=== PATIENT | male | born 1935 | race Caucasian/White ===

== ENCOUNTER → 2017-02-01 | Outpatient (CLI) | payer MEDICARE, BC ==
[~2017-02-01] MED LIST: HYDR-2823 PO; HYDR12.56 PO; NEUR600T PO; SYMB6CAP PO; TOPR25TA2 PO
[2017-02-01 09:16] LABS: HEMATOCRIT 44.7 % (39.0-51.0); MEAN CELL VOLUME 90.6 FL (80.0-100.0); MEAN CORPUSCULAR HEMOGLOBIN 30.2 PG (27.0-34.0); MEAN CORPUSCULAR HGB CONC 33.3 % (32.0-36.0); PLATELET COUNT 227 TH/MM3 (150-450); RED BLOOD COUNT 4.94 MIL/MM3 (4.50-5.90); RED CELL DISTRIBUTION WIDTH 13.7 % (11.6-17.2); REVIEW FLAG FINAL
[2017-02-01 09:48] LABS: ALKALINE PHOSPHATASE 92 U/L (45-117); ALT (GPT) 28 U/L (12-78); ANION GAP 9 MEQ/L (5-15); AST (GOT) 13 U/L (15-37); BLOOD UREA NITROGEN 19 MG/DL (7-18); CHLORIDE 105 MEQ/L (98-107); GLOMERULAR FILTRATION RATE 67 ML/MIN (>89); GLUCOSE,FASTING 181 MG/DL (74-99); HDL CHOLESTEROL 50.6 MG/DL (40.0-60.0); LDL CHOLESTEROL 86 MG/DL (0-99); LDL CHOLESTEROL DIRECT 122 MG/DL (0-99); POTASSIUM 4.2 MEQ/L (3.5-5.1); SODIUM (NA) 141 MEQ/L (136-145); TOTAL BILIRUBIN ADULT 0.6 MG/DL (0.2-1.0)
[2017-02-01 12:12] LABS: HEMOGLOBIN A1a 1.2 %; HEMOGLOBIN A1b 2.5 %; HEMOGLOBIN Ao 79.8 %; HEMOGLOBIN LA1C 2.5 %; HEMOGLOBIN P3 4.2 %
== END ==
LOC: PLAB 07:39
PROVIDERS: ATTEND Family Medicine
DX: E11.9 Type 2 diabetes mellitus without complications (principal); E78.2 Mixed hyperlipidemia; I10 Essential (primary) hypertension
CPT/HCPCS: 36415; 80053; 80061; 83036; 83721; 85027

== ENCOUNTER → 2017-05-10 | Outpatient (CLI) | payer MEDICARE, BC ==
[2017-05-10 09:44] LABS: HEMATOCRIT 44.4 % (39.0-51.0); MEAN CELL VOLUME 91.6 FL (80.0-100.0); MEAN CORPUSCULAR HGB CONC 32.8 % (32.0-36.0); PLATELET COUNT 246 TH/MM3 (150-450); RED BLOOD COUNT 4.85 MIL/MM3 (4.50-5.90); RED CELL DISTRIBUTION WIDTH 14.2 % (11.6-17.2); REVIEW FLAG FINAL; WHITE BLOOD COUNT 8.6 TH/MM3 (4.0-11.0)
[2017-05-10 10:02] LABS: ANION GAP 10 MEQ/L (5-15); AST (GOT) 15 U/L (15-37); BICARBONATE 25.5 MEQ/L (21.0-32.0); BLOOD UREA NITROGEN 21 MG/DL (7-18); CHLORIDE 105 MEQ/L (98-107); GLOMERULAR FILTRATION RATE 76 ML/MIN (>89); GLUCOSE,FASTING 198 MG/DL (74-99); POTASSIUM 4.1 MEQ/L (3.5-5.1); SODIUM (NA) 140 MEQ/L (136-145)
[2017-05-10 10:03] LABS: ALT (GPT) 25 U/L (12-78)
[2017-05-10 10:06] LABS: ALKALINE PHOSPHATASE 101 U/L (45-117); LDL CHOLESTEROL DIRECT 117 MG/DL (0-99); TOTAL BILIRUBIN ADULT 0.6 MG/DL (0.2-1.0)
[2017-05-10 10:23] LABS: HDL CHOLESTEROL 47.3 MG/DL (40.0-60.0); LDL CHOLESTEROL 106 MG/DL (0-99)
[2017-05-10 16:01] LABS: HEMOGLOBIN A1a 1.3 %; HEMOGLOBIN A1b 2.4 %; HEMOGLOBIN Ao 80.5 %; HEMOGLOBIN LA1C 2.5 %; HEMOGLOBIN P3 4.2 %
== END ==
LOC: PLAB 07:46
PROVIDERS: ATTEND Family Medicine
DX: E78.5 Hyperlipidemia, unspecified (principal); I10 Essential (primary) hypertension; E11.9 Type 2 diabetes mellitus without complications
CPT/HCPCS: 36415; 80053; 80061; 83036; 83721; 85027

== ENCOUNTER → 2017-08-16 | Outpatient (CLI) | payer MEDICARE, BC ==
[2017-08-16 13:31] LABS: MEAN CELL VOLUME 91.3 FL (80.0-100.0); MEAN CORPUSCULAR HEMOGLOBIN 30.4 PG (27.0-34.0); MEAN CORPUSCULAR HGB CONC 33.3 % (32.0-36.0); PLATELET COUNT 245 TH/MM3 (150-450); RED BLOOD COUNT 4.82 MIL/MM3 (4.50-5.90); RED CELL DISTRIBUTION WIDTH 14.1 % (11.6-17.2); REVIEW FLAG FINAL; WHITE BLOOD COUNT 8.3 TH/MM3 (4.0-11.0)
[2017-08-16 13:34] LABS: ANION GAP 7 MEQ/L (5-15); AST (GOT) 21 U/L (15-37); BICARBONATE 28.2 MEQ/L (21.0-32.0); BLOOD UREA NITROGEN 18 MG/DL (7-18); CHLORIDE 105 MEQ/L (98-107); GLOMERULAR FILTRATION RATE 64 ML/MIN (>89); GLUCOSE,FASTING 179 MG/DL (74-99); POTASSIUM 4.3 MEQ/L (3.5-5.1); SODIUM (NA) 140 MEQ/L (136-145)
[2017-08-16 13:35] LABS: ALT (GPT) 33 U/L (12-78)
[2017-08-16 13:37] LABS: ALKALINE PHOSPHATASE 102 U/L (45-117); HDL CHOLESTEROL 46.5 MG/DL (40.0-60.0); LDL CHOLESTEROL 83 MG/DL (0-99); LDL CHOLESTEROL DIRECT 118 MG/DL (0-99); TOTAL BILIRUBIN ADULT 0.5 MG/DL (0.2-1.0)
[2017-08-16 16:33] LABS: HEMOGLOBIN A1a 1.3 %; HEMOGLOBIN A1b 2.5 %; HEMOGLOBIN Ao 79.6 %; HEMOGLOBIN LA1C 2.5 %; HEMOGLOBIN P3 4.2 %
== END ==
LOC: PLAB 08:19
PROVIDERS: ATTEND Family Medicine
DX: E11.9 Type 2 diabetes mellitus without complications (principal); E78.2 Mixed hyperlipidemia; I10 Essential (primary) hypertension
CPT/HCPCS: 36415; 80053; 80061; 83036; 83721; 85027

== ENCOUNTER → 2017-11-29 | Outpatient (CLI) | payer MEDICARE, BC ==
[2017-11-29 13:25] LABS: HEMATOCRIT 41.6 % (39.0-51.0); MEAN CELL VOLUME 91.8 FL (80.0-100.0); MEAN CORPUSCULAR HEMOGLOBIN 30.9 PG (27.0-34.0); MEAN CORPUSCULAR HGB CONC 33.6 % (32.0-36.0); MEAN PLATELET VOLUME 7.6 FL (7.0-11.0); PLATELET COUNT 277 TH/MM3 (150-450); RED BLOOD COUNT 4.53 MIL/MM3 (4.50-5.90); RED CELL DISTRIBUTION WIDTH 14.7 % (11.6-17.2); WHITE BLOOD COUNT 8.8 TH/MM3 (4.0-11.0)
[2017-11-29 13:27] LABS: ALBUMIN 3.7 GM/DL (3.4-5.0); AST (GOT) 17 U/L (15-37); BICARBONATE 24.6 MEQ/L (21.0-32.0); BLOOD UREA NITROGEN 15 MG/DL (7-18); CALCIUM 8.9 MG/DL (8.5-10.1); CHLORIDE 105 MEQ/L (98-107); CREATININE 1.09 MG/DL (0.60-1.30); GLOMERULAR FILTRATION RATE 65 ML/MIN (>89); GLUCOSE,FASTING 174 MG/DL (74-99); SODIUM (NA) 141 MEQ/L (136-145)
[2017-11-29 13:28] LABS: ALT (GPT) 28 U/L (12-78); CHOLESTEROL 207 MG/DL (120-200)
[2017-11-29 13:30] LABS: ALKALINE PHOSPHATASE 99 U/L (45-117); CHOLESTEROL/ HDL RATIO 4.81 RATIO; LDL CHOLESTEROL 103 MG/DL (0-99); LDL CHOLESTEROL DIRECT 127 MG/DL (0-99); TOTAL BILIRUBIN ADULT 0.5 MG/DL (0.2-1.0); TOTAL PROTEIN 6.5 GM/DL (6.4-8.2); TRIGLYCERIDES 304 MG/DL (42-150)
== END ==
LOC: PLAB 09:44
PROVIDERS: ATTEND Family Medicine
DX: E11.9 Type 2 diabetes mellitus without complications (principal); E78.2 Mixed hyperlipidemia; I10 Essential (primary) hypertension
CPT/HCPCS: 36415; 80053; 80061; 83036; 83721; 85027

== ENCOUNTER 2018-01-22 11:52 | Inpatient (IN) | payer MEDICARE, BC ==
[2018-01-22] VITALS (10 sets, daily range): BP systolic 96–199; BP diastolic 51–109; PULSE 92–148; RESP 16–18; TEMP 98.9; O2SAT 93–97
[~2018-01-22] VITALS: Ht 180.3 cm; Wt 81.5 kg
[2018-01-22] MEDS ORDERED: GLIM2TAB PO (12:48)
[2018-01-22] MEDS ORDERED: ATOR10TA15 PO (12:48)
[2018-01-22] MEDS ORDERED: LOSA25TA PO (12:48)
[2018-01-22] MEDS ORDERED: METO1TAB42 PO (12:48)
[2018-01-22] MEDS ORDERED: LORA0.5T PO (12:48)
[2018-01-22] MEDS ORDERED: DULO1CAP3 PO (12:48)
--- NOTE | 2018-01-22 12:52 | PD ---
HPI Chief Complaint: Cardiac Complaint Time Seen by Provider: 12:41 Travel History International Travel<30 days: No Contact w/Intl Traveler<30days: No Traveled to known affect area: No History of Present Illness HPI 82-year-old male past medical history of diabetes, hypertension, hyperlipidemia presents to the emergency department sent by his primary care physician, Dr. Portillo, for shortness of breath and weakness. Patient states that when he arrived at his primary care physician's office, he noticed that he was short of breath and weak getting into the office. Therefore, his primary care physician sent him to the emergency department for further evaluation. Upon arrival to room, it is noted the patient is in A. fib with RVR. He denies any cardiac history. No history of A. fib. He denies any headache. No chest pain. No abdominal pain. No nausea or vomiting. No exacerbating or alleviating factors. Moderate severity. PFSH Past Medical History Arthritis: No Asthma: No Autoimmune Disease: No Blood Disorders: No Anxiety: Yes Depression: No Heart Rhythm Problems: No Cancer: No Cardiomyopathy: Yes Cardiovascular Problems: No High Cholesterol: Yes Chemotherapy: No Chest Pain: No Congestive Heart Failure: No COPD: No Cerebrovascular Accident: No Diabetes: No Diminished Hearing: No Endocrine: No GERD: No Glaucoma: No Genitourinary: Yes (PROSTATE ) Headaches: No Hepatitis: No Hiatal Hernia: Yes Hypertension: Yes Inguinal Hernia: Yes (LEFT SIDE REPAIR) Kidney Stones: No Musculoskeletal: No Neurologic: No Psychiatric: Yes Reproductive: No Respiratory: Yes (BRONCHITIS) Migraines: No Myocardial Infarction: No Radiation Therapy: No Renal Failure: No Seizures: No Sickle Cell Disease: No Sleep Apnea: No Thyroid Disease: No Ulcer: Yes Past Surgical History Abdominal Surgery: Yes (LEFT GROIN HERNIA REPAIR 1 1/2 YRS AGO) AICD: No Appendectomy: No Cardiac Surgery: No Cholecystectomy: No Ear Surgery: No Endocrine Surgery: No Eye Surgery: No Genitourinary Surgery: No Gynecologic Surgery: No Oral Surgery: No Pacemaker: No Thoracic Surgery: No Social History Alcohol Use: No Tobacco Use: No Substance Use: No Allergies-Medications (Allergen,Severity, Reaction): Coded Allergies: No Known Allergies (Verified , 11/09/11) Reported Meds & Prescriptions Reported Meds & Active Scripts Active Reported Metoprolol Succinate ER 24 HR (Metoprolol Succinate) 25 Mg Tab 25 Mg PO DAILY Atorvastatin (Atorvastatin Calcium) 10 Mg Tab 10 Mg PO HS Losartan (Losartan Potassium) 25 Mg Tab 25 Mg PO DAILY Glimepiride 2 Mg Tab 2 Mg PO DAILY Take with breakfast or first main meal Duloxetine DR (Duloxetine HCl) 60 Mg Capdr 60 Mg PO DAILY Lorazepam 0.5 Mg Tab 0.5 Mg PO HS PRN Review of Systems Except as stated in HPI: all other systems reviewed are Neg Physical Exam Narrative GENERAL: Well-nourished, well-developed elderly male patient, afebrile SKIN: Focused skin assessment warm/dry. HEAD: Normocephalic. Atraumatic. EYES: No scleral icterus. No injection or drainage. NECK: Supple, trachea midline. No JVD or lymphadenopathy. CARDIOVASCULAR: Irregular rhythm, tachycardic without murmurs, gallops, or rubs. Bilateral radial and pedal pulses are 2+ RESPIRATORY: Breath sounds equal bilaterally. No accessory muscle use. Lungs sounds are clear to auscultation. GASTROINTESTINAL: Abdomen soft, non-tender, nondistended. MUSCULOSKELETAL: No cyanosis, or edema. BACK: Nontender without obvious deformity. No CVA tenderness. Data Data Last Documented VS Vital Signs Date Time Temp Pulse Resp B/P (MAP) Pulse Ox O2 Delivery O2 Flow Rate FiO2 01/22/18 13:47 109 01/22/18 12:15 98.9 16 96/51 (66) 93 Orders Orders Electrocardiogram (01/22/18 12:16) Basic Metabolic Panel (Bmp) (01/22/18 12:16) Ckmb (Isoenzyme) Profile (01/22/18 12:16) Complete Blood Count With Diff (01/22/18 12:16) Magnesium (Mg) (01/22/18 12:16) Prothrombin Time / Inr (Pt) (01/22/18 12:16) Act Partial Throm Time (Ptt) (01/22/18 12:16) Troponin I (01/22/18 12:16) Chest, Pa & Lat (01/22/18 12:16) Diltiazem Inj (Cardizem Inj) (01/22/18 13:00) D-Dimer (01/22/18 12:49) Sodium Chlor 0.9% 1000 Ml Inj (Ns 1000 M (01/22/18 13:45) Admit Order (Ed Use Only) (01/22/18 14:10) Labs Laboratory Tests Test 01/22/18 12:34 White Blood Count 12.9 TH/MM3 Red Blood Count 5.03 MIL/MM3 Hemoglobin 15.6 GM/DL Hematocrit 45.6 % Mean Corpuscular Volume 90.6 FL Mean Corpuscular Hemoglobin 31.1 PG Mean Corpuscular Hemoglobin Concent 34.3 % Red Cell Distribution Width 14.0 % Platelet Count 191 TH/MM3 Mean Platelet Volume 7.8 FL Neutrophils (%) (Auto) 79.2 % Lymphocytes (%) (Auto) 11.5 % Monocytes (%) (Auto) 9.0 % Eosinophils (%) (Auto) 0.0 % Basophils (%) (Auto) 0.3 % Neutrophils # (Auto) 10.2 TH/MM3 Lymphocytes # (Auto) 1.5 TH/MM3 Monocytes # (Auto) 1.2 TH/MM3 Eosinophils # (Auto) 0.0 TH/MM3 Basophils # (Auto) 0.0 TH/MM3 CBC Comment DIFF FINAL Differential Comment Prothrombin Time 10.2 SEC Prothromb Time International Ratio 1.0 RATIO Activated Partial Thromboplast Time 23.9 SEC D-Dimer Quantitative (PE/DVT) 0.41 MG/L FEU Blood Urea Nitrogen 24 MG/DL Creatinine 1.58 MG/DL Random Glucose 390 MG/DL Calcium Level 8.8 MG/DL Magnesium Level 2.3 MG/DL Sodium Level 131 MEQ/L Potassium Level 5.3 MEQ/L Chloride Level 99 MEQ/L Carbon Dioxide Level 24.5 MEQ/L Anion Gap 8 MEQ/L Estimat Glomerular Filtration Rate 42 ML/MIN Total Creatine Kinase 93 U/L Troponin I 0.05 NG/ML [facility] Medical Decision Making Medical Screen Exam Complete: Yes Emergency Medical Condition: Yes Medical Record Reviewed: Yes Interpretation(s) chest x-ray - CONCLUSION: 1. Hyperaeration bilaterally. 2. Mild atelectasis versus scarring in both lung bases. 3. Otherwise, no focal or acute pulmonary infiltrates. Differential Diagnosis A. fib with RVR versus ACS versus PE versus electrolyte abnormality versus dehydration Narrative Course 82-year-old male presents to the emergency department for evaluation of weakness and shortness of breath that started this morning. On arrival to examine, patient is in A. fib with RVR. EKG shows A. fib with RVR, heart rate 142. CBC, BMP, CK, troponin, magnesium, PTT, PT/INR, d-dimer, chest x-ray are ordered and pending. Patient is given Cardizem 20 mg IV. CBC shows leukocytosis 12.9. BMP shows hyponatremia 131, hyperkalemia 5.3 ( slight hemolysis noted), BUN 24, creatinine 1.58. CK is 93. Troponin is 0.05. Magnesium is 2.3. Coags show no acute abnormality. D-dimer is 0.41. Chest x -ray shows Hyperaeration bilaterally; Mild atelectasis versus scarring in both lung bases, Otherwise, no focal or acute pulmonary infiltrates. Patient is given normal saline 1 L IV bolus. Hospitalist is paged for admission. Dr. Griffith accepted admission. Diagnosis Primary Impression: Atrial fibrillation with rapid ventricular response Admitting Information Admitting Physician Requests: Aida Souza Jan 22, 2018 12:52
[2018-01-22 12:53] LABS: AUTOMATED NEUTROPHIL # 10.2 TH/MM3 (1.8-7.7); BASOPHIL % 0.3 % (0.0-2.0); HEMATOCRIT 45.6 % (39.0-51.0); HEMOGLOBIN 15.6 GM/DL (13.0-17.0); LYMPH % 11.5 % (9.0-44.0); LYMPHOCYTE # 1.5 TH/MM3 (1.0-4.8); MEAN CELL VOLUME 90.6 FL (80.0-100.0); MEAN CORPUSCULAR HEMOGLOBIN 31.1 PG (27.0-34.0); MEAN CORPUSCULAR HGB CONC 34.3 % (32.0-36.0); MEAN PLATELET VOLUME 7.8 FL (7.0-11.0); MONOCYTE # 1.2 TH/MM3 (0-0.9); NEUT % 79.2 % (16.0-70.0); PLATELET COUNT 191 TH/MM3 (150-450); RED BLOOD COUNT 5.03 MIL/MM3 (4.50-5.90); WHITE BLOOD COUNT 12.9 TH/MM3 (4.0-11.0)
[2018-01-22] MEDS ORDERED: DILTIAZEM HCL 25 MG/5 ML VIAL IV PUSH ONE (13:00)
[2018-01-22 13:04] LABS: PROTHROMBIN TIME - PATIENT 10.2 SEC (9.8-11.6)
[2018-01-22 13:11] LABS: BICARBONATE 24.5 MEQ/L (21.0-32.0); CALCIUM 8.8 MG/DL (8.5-10.1); CREATININE 1.58 MG/DL (0.60-1.30); MAGNESIUM 2.3 MG/DL (1.5-2.5)
[2018-01-22 13:17] LABS: TROPONIN I 0.05 NG/ML (0.02-0.05)
--- NOTE | 2018-01-22 13:40 | RADRPT ---
EXAM DATE/TIME: 01/22/2018 13:27 [place] COMPARISON: No previous studies available for comparison. INDICATIONS : Chest tightness x 3 days MEDICAL HISTORY : None. SURGICAL HISTORY : None. ENCOUNTER: Initial ACUITY: 3 days PAIN SCORE: 7/10 LOCATION: Bilateral chest FINDINGS: PA and lateral views of the chest demonstrate the lungs to be symmetrically aerated without evidence of mass, infiltrate or effusion. There is hyperaeration of both lung bower with some mild scarring v ersus atelectasis in the lung bases. The cardiomediastinal contours are unremarkable. Osseous struct ures are intact. CONCLUSION: 1. Hyperaeration bilaterally. 2. Mild atelectasis versus scarring in both lung bases. 3. Otherwise, no focal or acute pulmonary infiltrates. Carlos Lopez MD on January 22, 2018 at 13:37 Board Certified Radiologist. This report was verified electronically.
--- NOTE | 2018-01-22 13:44 | PD ---
Physical Exam Date Seen by Provider: Jan 22, 2018 Time Seen by Provider: 12:40 Narrative I, Dr. Bragg, have reviewed the advance practice practitioner's documentation and am in agreement, met with the patient face to face, made the diagnosis, and the medical decision making was done by me. *My assessment and Findings: Patient seen and evaluated with PA, please see PA note for further details. Here for dyspnea on exertion, sent in by primary care physician, was found to have tachycardia. It appears that he is in A. fib with rapid ventricular response at a rate of 150 bpm on initial EKG. Cardizem was given with good rate control. This appears to be a new onset atrial fibrillation. Patient otherwise is in only mild distress, vital signs are stable. Laboratory Tests Test 01/22/18 12:34 White Blood Count 12.9 TH/MM3 (4.0-11.0) Neutrophils (%) (Auto) 79.2 % (16.0-70.0) Monocytes (%) (Auto) 9.0 % (0.0-8.0) Neutrophils # (Auto) 10.2 TH/MM3 (1.8-7.7) Monocytes # (Auto) 1.2 TH/MM3 (0-0.9) Activated Partial Thromboplast Time 23.9 SEC (24.3-30.1) Blood Urea Nitrogen 24 MG/DL (7-18) Creatinine 1.58 MG/DL (0.60-1.30) Random Glucose 390 MG/DL (74-106) Sodium Level 131 MEQ/L (136-145) Potassium Level 5.3 MEQ/L (3.5-5.1) Estimat Glomerular Filtration Rate 42 ML/MIN (>89) Chest x-ray was unremarkable. Lab work otherwise was fairly unremarkable. My plan would be to admit the patient for further treatment of new onset A. fib at this point. Data Data Last Documented VS Vital Signs Date Time Temp Pulse Resp B/P (MAP) Pulse Ox O2 Delivery O2 Flow Rate FiO2 01/22/18 13:05 92 01/22/18 12:15 98.9 16 96/51 (66) 93 Orders Orders Electrocardiogram (01/22/18 12:16) Basic Metabolic Panel (Bmp) (01/22/18 12:16) Ckmb (Isoenzyme) Profile (01/22/18 12:16) Complete Blood Count With Diff (01/22/18 12:16) Magnesium (Mg) (01/22/18 12:16) Prothrombin Time / Inr (Pt) (01/22/18 12:16) Act Partial Throm Time (Ptt) (01/22/18 12:16) Troponin I (01/22/18 12:16) Chest, Pa & Lat (01/22/18 12:16) Diltiazem Inj (Cardizem Inj) (01/22/18 13:00) D-Dimer (01/22/18 12:49) Sodium Chlor 0.9% 1000 Ml Inj (Ns 1000 M (01/22/18 13:45) Labs Laboratory Tests Test 01/22/18 12:34 White Blood Count 12.9 TH/MM3 Red Blood Count 5.03 MIL/MM3 Hemoglobin 15.6 GM/DL Hematocrit 45.6 % Mean Corpuscular Volume 90.6 FL Mean Corpuscular Hemoglobin 31.1 PG Mean Corpuscular Hemoglobin Concent 34.3 % Red Cell Distribution Width 14.0 % Platelet Count 191 TH/MM3 Mean Platelet Volume 7.8 FL Neutrophils (%) (Auto) 79.2 % Lymphocytes (%) (Auto) 11.5 % Monocytes (%) (Auto) 9.0 % Eosinophils (%) (Auto) 0.0 % Basophils (%) (Auto) 0.3 % Neutrophils # (Auto) 10.2 TH/MM3 Lymphocytes # (Auto) 1.5 TH/MM3 Monocytes # (Auto) 1.2 TH/MM3 Eosinophils # (Auto) 0.0 TH/MM3 Basophils # (Auto) 0.0 TH/MM3 CBC Comment DIFF FINAL Differential Comment Prothrombin Time 10.2 SEC Prothromb Time International Ratio 1.0 RATIO Activated Partial Thromboplast Time 23.9 SEC D-Dimer Quantitative (PE/DVT) 0.41 MG/L FEU Blood Urea Nitrogen 24 MG/DL Creatinine 1.58 MG/DL Random Glucose 390 MG/DL Calcium Level 8.8 MG/DL Magnesium Level 2.3 MG/DL Sodium Level 131 MEQ/L Potassium Level 5.3 MEQ/L Chloride Level 99 MEQ/L Carbon Dioxide Level 24.5 MEQ/L Anion Gap 8 MEQ/L Estimat Glomerular Filtration Rate 42 ML/MIN Total Creatine Kinase 93 U/L Troponin I 0.05 NG/ML [facility] Medical Record Reviewed: Yes Supervised Visit with VIOLETTE: Yes Diagnosis Primary Impression: Atrial fibrillation with rapid ventricular response Admitting Information Admitting Physician Requests: Alba Escobar MD Jan 22, 2018 13:44
[2018-01-22] MEDS ORDERED: SODIUM CHLOR 0.9% 1000 ML INJ 1,000 ML IV ONE (13:45)
[2018-01-22] MEDS ORDERED: SODIUM CHLORIDE 0.9% FLUSH 10 ML FLUSH IV FLUSH PRN (14:15)
[2018-01-22] MEDS ORDERED: NALOXONE HCL 0.4 MG/ML AMP IV PUSH PRN (14:15)
--- NOTE | 2018-01-22 14:25 | HHI.HP ---
HPI Service [facility] Primary Care Physician Carlos Portillo MD Admission Diagnosis new onset a-fib with RVR Diagnoses: Travel History International Travel<30 Days: No Contact w/Intl Traveler <30 Da: No Traveled to Known Affected Are: No History of Present Illness History from patient, ER physician, medication, and if her medical records. feeling winded for past 2-3 days thus went to pcp at pcp office, ekg was done, and was in afib with rvr 150s no feeling of palpitations per pt no chest pain has cough adn phlegm - 2-3 days as well but has been waking up with drenched sweat "in the beginning" past 2-3 days no headaches, no sinus discharge has been taking liquorish candies and stool is at times black no other symptoms went to dr taylor office this am states he takes all his meds ALL IN ONE SHOT at night around 1000p.m. Review of Systems Except as stated in HPI: all other systems reviewed are Neg Past Family Social History Past Medical History sees Dr Solis- because has water in the lungs from heart, and had to do tests done at . but he is not Dr Solis's patient, never had heart problems dm basal cell carcinoma left arm, right face- has been going on for a while for treatment- surgical resections only Past Surgical History skin cancer removal surgeries Allergies: Coded Allergies: No Known Allergies (Verified , 11/09/11) Family History none that he knows of Social History quit smoking 1996 denies etoh abuse or drug abuse lives with , still driving Physical Exam Vital Signs Vital Signs Date Time Temp Pulse Resp B/P (MAP) Pulse Ox O2 Delivery O2 Flow Rate FiO2 01/22/18 13:47 109 01/22/18 13:05 92 01/22/18 12:15 98.9 148 16 96/51 (66) 93 Physical Exam GENERAL: This is a well-nourished, well-developed patient, in no apparent distress. SKIN: No rashes, ecchymoses or lesions. Cool and dry. HEAD: Atraumatic. Normocephalic. No temporal or scalp tenderness. EYES: No scleral icterus. No injection or drainage. strabismus of left eye ENT: Nose without bleeding, purulent drainage or septal hematoma. Airway patent. NECK: Trachea midline. No JVD Supple, nontender, no meningeal signs. CARDIOVASCULAR: Regular rate and rhythm without murmurs, gallops, or rubs. RESPIRATORY: Clear to auscultation. Breath sounds equal bilaterally. No wheezes , rales, or rhonchi. GASTROINTESTINAL: Abdomen soft, non-tender, nondistended. No guarding. MUSCULOSKELETAL: Extremities without clubbing, cyanosis, or edema. No calf tenderness. NEUROLOGICAL: Awake and alert. Motor and sensory grossly within normal limits. Normal speech. Laboratory Laboratory Tests Test 01/22/18 12:34 White Blood Count 12.9 Red Blood Count 5.03 Hemoglobin 15.6 Hematocrit 45.6 Mean Corpuscular Volume 90.6 Mean Corpuscular Hemoglobin 31.1 Mean Corpuscular Hemoglobin Concent 34.3 Red Cell Distribution Width 14.0 Platelet Count 191 Mean Platelet Volume 7.8 Neutrophils (%) (Auto) 79.2 Lymphocytes (%) (Auto) 11.5 Monocytes (%) (Auto) 9.0 Eosinophils (%) (Auto) 0.0 Basophils (%) (Auto) 0.3 Neutrophils # (Auto) 10.2 Lymphocytes # (Auto) 1.5 Monocytes # (Auto) 1.2 Eosinophils # (Auto) 0.0 Basophils # (Auto) 0.0 CBC Comment DIFF FINAL Differential Comment Prothrombin Time 10.2 Prothromb Time International Ratio 1.0 Activated Partial Thromboplast Time 23.9 D-Dimer Quantitative (PE/DVT) 0.41 Blood Urea Nitrogen 24 Creatinine 1.58 Random Glucose 390 Calcium Level 8.8 Magnesium Level 2.3 Sodium Level 131 Potassium Level 5.3 Chloride Level 99 Carbon Dioxide Level 24.5 Anion Gap 8 Estimat Glomerular Filtration Rate 42 Total Creatine Kinase 93 Troponin I 0.05 Result Diagram: 01/22/18 1234 01/22/18 1234 Imaging Last 48 hours Impressions Chest X-Ray 01/22/18 1216 Signed Impressions: Service Date/Time: Monday, January 22, 2018 13:27 - CONCLUSION: 1. Hyperaeration bilaterally. 2. Mild atelectasis versus scarring in both lung bases. 3. Otherwise, no focal or acute pulmonary infiltrates. Carlos Lopez MD Caprinlaly VTE Risk Assessment Caprini VTE Risk Assessment: Mod/High Risk (score >= 2) Caprini Risk Assessment Model Point Value = 1 Point Value = 2 Point Value = 3 Point Value = 5 Age 41-60 Minor surgery BMI > 25 kg/m2 Swollen legs Varicose veins or History of unexplained or recurrent spontaneous Oral contraceptives or hormone replacement Sepsis (< 1 month) Serious lung disease, including pneumonia (< 1 month) Abnormal pulmonary function Acute myocardial infarction Congestive heart failure (< 1 month) History of inflammatory bowel disease Medical patient at bed rest Age 61-74 Arthroscopic surgery Major open surgery (> 45 min) Laparoscopic surgery (> 45 min) Malignancy Confined to bed (> 72 hours) Immobilizing plaster cast Central venous access Age >= 75 History of VTE Family history of VTE Factor V Leiden Prothrombin [id number] Lupus anticoagulant Anticardiolipin antibodies Elevated serum homocysteine Heparin-induced thrombocytopenia Other congenital or acquired thrombophilia Stroke (< 1 month) Elective arthroplasty Hip, pelvis, or leg fracture Acute spinal cord injury (< 1 month) Prophylaxis Regimen Total Risk Factor Score Risk Level Prophylaxis Regimen 0-1 Low Early ambulation 2 Moderate Order ONE of the following: *Sequential Compression Device (SCD) *Heparin 5000 units SQ BID 3-4 Higher Order ONE of the following medications: *Heparin 5000 units SQ TID *Enoxaparin/Lovenox 40 mg SQ daily (WT < 150 kg, CrCl > 30 mL/min) *Enoxaparin/Lovenox 30 mg SQ daily (WT < 150 kg, CrCl > 10-29 mL/min) *Enoxaparin/Lovenox 30 mg SQ BID (WT < 150 kg, CrCl > 30 mL/min) AND/OR *Sequential Compression Device (SCD) 5 or more Highest Order ONE of the following medications: *Heparin 5000 units SQ TID (Preferred with Epidurals) *Enoxaparin/Lovenox 40 mg SQ daily (WT < 150 kg, CrCl > 30 mL/min) *Enoxaparin/Lovenox 30 mg SQ daily (WT < 150 kg, CrCl > 10-29 mL/min) *Enoxaparin/Lovenox 30 mg SQ BID (WT < 150 kg, CrCl > 30 mL/min) AND *Sequential Compression Device (SCD) Assessment and Plan Assessment and Plan Impression: new onset afib with RVR- rate is now controlled with single IV med cough, possible early viral vs bacterial infection Mild leukocytosis with left shift. Suspect underlying infection. htn dm Plan: tele monitioring asa will need to discuss anticoagulation echo cardio consult resume home meds influenza screen UA and urine culture. Resume home meds. DVT prophylaxis with Lovenox. Patient later went back into A. fib with RVR with heart rate in the 150s. A second dose of Cardizem 15 mg IV bolus was given. Patient continued to be still tachycardic after the above and therefore was started on Cardizem drip. Change patient to full admit. Discussed Condition With Patient, ER physician, nursing staff Amanda Griffith MD Jan 22, 2018 14:25
[2018-01-22] MEDS ORDERED: LORazepam 0.5 MG TAB PO PRN (14:30)
[2018-01-22] MEDS ORDERED: ASPIRIN EC 325 MG TABEC PO ONE (15:00)
[2018-01-22] MEDS ORDERED: DILTIAZEM HCL 25 MG/5 ML VIAL IV ONE (18:15)
[2018-01-22 19:03] LABS: BACTERIA, URINE OCC /hpf; BILIRUBIN, URINE NEG (NEG); BLOOD, URINE MOD (NEG); GLUCOSE,URINE 1000 mg/dL (NEG); KETONE, URINE 10 mg/dL (NEG); NITRITE,URINE NEG (NEG); PH, URINE 5.5 (5.0-8.5); RENAL EPITHELIAL CELLS 1 /hpf; SQUAMOUS EPITHELIAL CELL URINE 2 /hpf (0-5); URINE COLOR YELLOW (YELLW/STRAW); URINE LEUKOCYTE ESTERASE LARGE (NEG)
[2018-01-22 19:18] LABS: TROPONIN I 0.04 NG/ML (0.02-0.05)
[2018-01-22] MEDS: DILTIAZEM INJ 125 MG in SODIUM CHLORIDE 0.9% INJ 100 ML IV PRN (20:22)
[2018-01-22] MEDS: SODIUM CHLORIDE 0.9% FLUSH 10 ML FLUSH IV FLUSH SCH (23:28)
[2018-01-22] MEDS: ATORVASTATIN 10 MG TAB PO SCH (23:28)
[2018-01-22] MEDS: cefTRIAXone INJ 1,000 MG in SODIUM CHLORIDE 0.9% INJ 100 ML IV SCH (23:28)
[2018-01-23] VITALS (16 sets, daily range): BP systolic 118–174; BP diastolic 58–87; PULSE 64–147; RESP 15–23; TEMP 97.5–98.3; O2SAT 94–99
[2018-01-23 01:45] LABS: TROPONIN I LESS THAN 0.02 NG/ML (0.02-0.05)
[2018-01-23] MEDS ORDERED: METOPROLOL TARTRATE 5 MG/5 ML VIAL IV PUSH ONE (04:30)
[2018-01-23 04:55] LABS: AUTOMATED NEUTROPHIL # 8.8 TH/MM3 (1.8-7.7); BASOPHIL % 0.2 % (0.0-2.0); EOSINOPHIL % 0.2 % (0.0-4.0); HEMATOCRIT 43.9 % (39.0-51.0); HEMOGLOBIN 14.6 GM/DL (13.0-17.0); LYMPH % 17.2 % (9.0-44.0); LYMPHOCYTE # 2.1 TH/MM3 (1.0-4.8); MEAN CELL VOLUME 91.1 FL (80.0-100.0); MEAN CORPUSCULAR HEMOGLOBIN 30.3 PG (27.0-34.0); MEAN CORPUSCULAR HGB CONC 33.3 % (32.0-36.0); MEAN PLATELET VOLUME 7.9 FL (7.0-11.0); MONO % 9.6 % (0.0-8.0); MONOCYTE # 1.2 TH/MM3 (0-0.9); NEUT % 72.8 % (16.0-70.0); PLATELET COUNT 195 TH/MM3 (150-450); RED BLOOD COUNT 4.82 MIL/MM3 (4.50-5.90); RED CELL DISTRIBUTION WIDTH 14.4 % (11.6-17.2); WHITE BLOOD COUNT 12.1 TH/MM3 (4.0-11.0)
[2018-01-23 05:27] LABS: BICARBONATE 24.4 MEQ/L (21.0-32.0); CALCIUM 8.4 MG/DL (8.5-10.1); CREATININE 1.09 MG/DL (0.60-1.30)
[2018-01-23] MEDS ORDERED: METOPROLOL SUCCINATE 25 MG EXTENDED RELEASE TAB PO SCH (09:00)
[2018-01-23] MEDS ORDERED: METOPROLOL SUCCINATE 50 MG EXTENDED RELEASE TAB PO SCH (09:00)
[2018-01-23] MEDS ORDERED: ASPIRIN EC 325 MG TABEC PO SCH (09:00)
[2018-01-23] MEDS: LOSARTAN 25 MG TAB PO SCH (09:54)
[2018-01-23] MEDS: SODIUM CHLORIDE 0.9% FLUSH 10 ML FLUSH IV FLUSH SCH ×2 (10:01→21:27)
[2018-01-23] MEDS: DULoxetine HCl DR 60 MG CAP PO SCH (10:11)
[2018-01-23] MEDS: GLIMEPIRIDE 2 MG TAB PO SCH (10:12)
--- NOTE | 2018-01-23 10:35 | PD.CONS ---
HPI Service Cardiology Consult Requested By Dr Griffith Reason for Consult new onset atrial fibrillation Primary Care Physician Carlos Portillo MD History of Present Illness The patient is an 82 year old male not known to our practice with a cardiac history of HTN, HLD, DM and former smoker. He presented to the hospital for exertional SOB. For the past month, he admits to increased fatigue with ADLs. He denies edema, palpitations, lightheadedness or chest pain. He does not drink alcohol. Since admission, he feels less SOB. He is currently on a cardizem drip and received metoprolol PO. His rate remains elevated above 100 bpm. He also appears to have a UTI. He admits to increased urination and change of color. He denies urgency or dysuria. He does not have a history of CVA. He denies history of GI or brain bleed. He does have a history of a gastric ulcer. (Mar Lyn) Review of Systems Consitutional: COMPLAINS OF: Fatigue, DENIES: Fever, Chills, Weight gain, Weight loss Eyes: DENIES: Amaurosis Fugax, Change in vision HEENT: DENIES: Lightheadedness, Change in hearing Respiratory: COMPLAINS OF: Shortness of breath, DENIES: See HPI, Cough, Snoring , Wheezing, Sputum production Cardiovascular: COMPLAINS OF: Tachycardia, DENIES: See HPI, Chest pain, Palpitations, Syncope Gastrointestinal: DENIES: Nausea, Vomiting, Change in bowel habits, Reflux, Bloody stools, Melena Genitourinary: DENIES: Urinary incontinence, Difficulty voiding Integumentary: DENIES: Rash Neurologic: DENIES: Tingling or numbness, Memory problems, Poor Balance, Stroke symptoms Musculoskeletal: DENIES: Joint pain, Muscle pain, Limited range of motion, Back pain Psychiatric: DENIES: Anxiety, Depression, Sleep disturbances Hematologic: DENIES: Bruising tendencies, Bleeding tendencies Endocrine: DENIES: Weight gain, Weight loss, Thyroid disease (Mar Lyn ) Past Family Social History Allergies: Coded Allergies: No Known Allergies (Verified , 11/09/11) Past Medical History HTN HLD "borderline diabetes" Basal cell carcinoma Former smoker Gastric ulcer Past Surgical History dermatologic removal of skin cancer EGD Reported Medications Reported Meds & Active Scripts Active Reported Metoprolol Succinate ER 24 HR (Metoprolol Succinate) 25 Mg Tab 25 Mg PO DAILY Atorvastatin (Atorvastatin Calcium) 10 Mg Tab 10 Mg PO HS Losartan (Losartan Potassium) 25 Mg Tab 25 Mg PO DAILY Glimepiride 2 Mg Tab 2 Mg PO DAILY Take with breakfast or first main meal Duloxetine DR (Duloxetine HCl) 60 Mg Capdr 60 Mg PO DAILY Lorazepam 0.5 Mg Tab 0.5 Mg PO HS PRN Active Ordered Medications Current Medications Medications (Trade) Dose Ordered Sig/Tamia Route Start Time Stop Time Status Last Admin (NS Flush) 2 ml UNSCH PRN IV FLUSH 01/22/18 14:15 01/23/18 05:48 (NS Flush) 2 ml BID IV FLUSH 01/22/18 21:00 01/23/18 10:01 (Narcan Inj) 0.4 mg UNSCH PRN IV PUSH 01/22/18 14:15 (Lipitor) 10 mg HS PO 01/22/18 21:00 01/22/18 23:28 (Cymbalta Dr) 60 mg DAILY PO 01/23/18 09:00 (Amaryl) 2 mg DAILY PO 01/23/18 09:00 (Ativan) 0.5 mg HS PRN PO 01/22/18 14:30 (Cozaar) 25 mg DAILY PO 01/23/18 09:00 01/23/18 09:54 (Ecotrin Ec) 325 mg DAILY PO 01/23/18 09:00 01/23/18 09:54 Diltiazem HCl 125 mg/Sodium Chloride 125 ml @ 5 mls/hr TITRATE PRN IV 01/22/18 18:15 01/22/18 20:22 Ceftriaxone Sodium 1000 mg/ Sodium Chloride 100 ml @ 200 mls/hr Q24H IV 01/22/18 22:00 01/22/18 23:28 (Toprol Xl) 50 mg DAILY PO 01/23/18 09:00 Family History Non contributory Social History Former smoker quit 1995 Former ETOH last drink 1979 (Mar Lyn) Physical Exam Vital Signs Vital Signs Date Time Temp Pulse Resp B/P (MAP) Pulse Ox O2 Delivery O2 Flow Rate FiO2 01/23/18 09:00 98.3 128 15 165/85 (111) 98 Room Air 01/23/18 08:00 128 18 128/75 (92) 95 Room Air 01/23/18 07:59 95 Room Air 01/23/18 07:00 115 18 138/71 (93) 99 Room Air 01/23/18 06:00 80 20 118/58 (78) 94 Room Air 01/23/18 05:00 147 16 141/80 (100) 94 Room Air 01/23/18 03:00 110 20 131/80 (97) 95 Room Air 01/23/18 02:00 104 22 119/68 (85) 94 Room Air 01/23/18 01:00 100 19 159/76 (103) 94 Room Air 01/22/18 23:00 108 18 149/103 (118) 95 01/22/18 21:52 125 18 145/74 (97) 95 Room Air 01/22/18 21:00 130 18 130/56 (80) 96 Room Air 01/22/18 20:22 139 163/83 01/22/18 18:24 117 01/22/18 18:00 145 17 199/109 (139) 95 Room Air 01/22/18 16:00 112 17 158/80 (106) 97 Room Air 01/22/18 14:00 123 160/75 (103) 97 Room Air 01/22/18 13:47 109 01/22/18 13:05 92 01/22/18 12:15 98.9 148 16 96/51 (66) 93 Physical Exam GENERAL: Elderly male NAD SKIN: Warm and dry. HEAD: Atraumatic. Normocephalic. EYES: Pupils equal and round. No scleral icterus. ENT: No nasal bleeding or discharge. NECK: Trachea midline. No JVD. CARDIOVASCULAR: Irreg irreg, tachycardia, no murmur or rub RESPIRATORY: No accessory muscle use. Breath sounds equal bilaterally. Right base rhonchi GASTROINTESTINAL: Suprapubic tenderness to palpation, no distention MUSCULOSKELETAL: Extremities without clubbing, cyanosis, or edema. No obvious deformities. NEUROLOGICAL: Awake and alert. No obvious cranial nerve deficits. Motor grossly within normal limits. Five out of 5 muscle strength in the arms and legs. Normal speech. PSYCHIATRIC: Appropriate mood and affect; insight and judgment normal. Laboratory Laboratory Tests Test 01/22/18 12:34 01/22/18 18:00 01/22/18 18:15 01/23/18 01:05 White Blood Count 12.9 Red Blood Count 5.03 Hemoglobin 15.6 Hematocrit 45.6 Mean Corpuscular Volume 90.6 Mean Corpuscular Hemoglobin 31.1 Mean Corpuscular Hemoglobin Concent 34.3 Red Cell Distribution Width 14.0 Platelet Count 191 Mean Platelet Volume 7.8 Neutrophils (%) (Auto) 79.2 Lymphocytes (%) (Auto) 11.5 Monocytes (%) (Auto) 9.0 Eosinophils (%) (Auto) 0.0 Basophils (%) (Auto) 0.3 Neutrophils # (Auto) 10.2 Lymphocytes # (Auto) 1.5 Monocytes # (Auto) 1.2 Eosinophils # (Auto) 0.0 Basophils # (Auto) 0.0 CBC Comment DIFF FINAL Differential Comment Prothrombin Time 10.2 Prothromb Time International Ratio 1.0 Activated Partial Thromboplast Time 23.9 D-Dimer Quantitative (PE/DVT) 0.41 Blood Urea Nitrogen 24 Creatinine 1.58 Random Glucose 390 Calcium Level 8.8 Magnesium Level 2.3 Sodium Level 131 Potassium Level 5.3 Chloride Level 99 Carbon Dioxide Level 24.5 Anion Gap 8 Estimat Glomerular Filtration Rate 42 Total Creatine Kinase 93 48 63 Troponin I 0.05 0.04 LESS THAN 0.02 Urine Color YELLOW Urine Turbidity HAZY Urine pH 5.5 Urine Specific [place] 1.026 Urine Protein 30 Urine Glucose (UA) 1000 Urine Ketones 10 Urine Occult Blood MOD Urine Nitrite NEG Urine Bilirubin NEG Urine Urobilinogen LESS THAN 2.0 Urine Leukocyte Esterase LARGE Urine RBC 58 Urine WBC 111 Urine Squamous Epithelial Cells 2 Urine Renal Epithelial Cells 1 Urine Bacteria OCC Microscopic Urinalysis Comment CULTURE INDICATED Test 01/23/18 03:54 White Blood Count 12.1 Red Blood Count 4.82 Hemoglobin 14.6 Hematocrit 43.9 Mean Corpuscular Volume 91.1 Mean Corpuscular Hemoglobin 30.3 Mean Corpuscular Hemoglobin Concent 33.3 Red Cell Distribution Width 14.4 Platelet Count 195 Mean Platelet Volume 7.9 Neutrophils (%) (Auto) 72.8 Lymphocytes (%) (Auto) 17.2 Monocytes (%) (Auto) 9.6 Eosinophils (%) (Auto) 0.2 Basophils (%) (Auto) 0.2 Neutrophils # (Auto) 8.8 Lymphocytes # (Auto) 2.1 Monocytes # (Auto) 1.2 Eosinophils # (Auto) 0.0 Basophils # (Auto) 0.0 CBC Comment DIFF FINAL Differential Comment Blood Urea Nitrogen 19 Creatinine 1.09 Random Glucose 230 Calcium Level 8.4 Sodium Level 140 Potassium Level 4.8 Chloride Level 106 Carbon Dioxide Level 24.4 Anion Gap 10 Estimat Glomerular Filtration Rate 65 Date/Time Source Procedure Growth Status 01/22/18 14:40 Nasal Washing Influenza Types A,B Antigen (JAD) - Final NEGATIVE FOR FLU A AND B ANTIGEN.... Complete 01/22/18 18:00 Urine Clean Catch Urine Culture Pending Received (Mar Lyn) Result Diagram: 01/23/18 0354 01/23/18 0354 Imaging Last 72 hours Impressions Chest X-Ray 01/22/18 1216 Signed Impressions: Service Date/Time: Monday, January 22, 2018 13:27 - CONCLUSION: 1. Hyperaeration bilaterally. 2. Mild atelectasis versus scarring in both lung bases. 3. Otherwise, no focal or acute pulmonary infiltrates. Carlos Lopez MD (Mar Lyn) Assessment and Plan Assessment and Plan New onset atrial fibrillation with RVR. CHADSVASC score 4 on the basis of age, HTN, DM Mild elevation of troponin on admission due to KEV and tachycardia HTN HLD UTI PLAN: Start Eliquis 5 mg BID Increase metoprolol tartrate 50 mg TID Continue Cardizem drip for now transition to PO soon Pending echocardiogram Check TSH/T4 Treat UTI We will plan ischemic work up outpatient The patient was seen and evaluated by Dr Rodgers who completed face to face encounter and physical exam and participated in evaluation and management. (Mar Lyn) Assessment and Plan The exam, history, and the medical decision-making described in the above note were completed with the assistance of the mid-level provider. I reviewed and agree with the findings presented. I attest that I had a [id number] encounter with the patient on the same day, and personally performed and documented my assessment and findings in the medical record. New onset atrial fib. Will w/u as op once hr stable and will consider cardioversion after about a month of anticoagulation. (Noemy Rodgers MD) Mar Lyn Jan 23, 2018 10:35 Noemy Rodgers MD Jan 23, 2018 17:33
--- NOTE | 2018-01-23 10:50 | EKG ---
Date Performed: 01/23/2018 Time Performed: 01:13:05 PTAGE: 82 years EKG: ATRIAL FIBRILLATION WITH RAPID VENTRICULAR RESPONSE ABNORMAL RHYTHM ECG NO PREVIOUS TRACING DOCTOR: Jed Bain Interpretating Date/Time 01/23/2018 10:49:49
[2018-01-23] MEDS ORDERED: METOPROLOL TARTRATE 50 MG TAB PO SCH (11:00)
[2018-01-23] MEDS: APIXABAN 5 MG TABLET PO SCH ×2 (11:59→21:26)
[2018-01-23] MEDS: DILTIAZEM INJ 125 MG in SODIUM CHLORIDE 0.9% INJ 100 ML IV PRN (13:27)
[2018-01-23] MEDS: DILTIAZEM HCL 60 MG TAB PO SCH ×3 (13:45→21:26)
--- NOTE | 2018-01-23 14:00 | EKG ---
Date Performed: 01/22/2018 Time Performed: 18:19:35 PTAGE: 82 years EKG: ATRIAL FIBRILLATION PREVIOUS TRACING : 01/22/2018 12.26 DOCTOR: Jed Bain Interpretating Date/Time 01/23/2018 14:00:10
--- NOTE | 2018-01-23 14:53 | EKG ---
Date Performed: 01/22/2018 Time Performed: 12:26:16 PTAGE: 82 years EKG: ATRIAL FIBRILLATION WITH RAPID VENTRICULAR RESPONSE PREVIOUS TRACING : 11/09/2011 13.50 DOCTOR: Jed Bain Interpretating Date/Time 01/23/2018 14:52:07
--- NOTE | 2018-01-23 20:33 | HHI.PR ---
Subjective Remarks Patient seen this morning around 8 AM. Says he is feeling a little better. Denies any chest pain or shortness of breath currently. Denies any dysuria. Objective Vital Signs Date Time Temp Pulse Resp B/P (MAP) Pulse Ox O2 Delivery O2 Flow Rate FiO2 01/23/18 16:09 97.9 85 20 152/85 (107) 95 01/23/18 13:43 01/23/18 13:27 65 153/65 01/23/18 13:11 64 18 153/65 (94) 01/23/18 13:00 65 153/65 01/23/18 12:00 134 23 149/87 (107) 95 Room Air 01/23/18 12:00 134 149/87 01/23/18 11:00 110 160/67 01/23/18 11:00 108 16 160/67 (98) 95 01/23/18 10:00 116 18 174/78 (110) 98 Room Air 01/23/18 10:00 118 174/78 01/23/18 09:00 98.3 128 15 165/85 (111) 98 Room Air 01/23/18 09:00 116 165/85 01/23/18 08:00 102 128/75 01/23/18 08:00 128 18 128/75 (92) 95 Room Air 01/23/18 07:59 95 Room Air 01/23/18 07:00 115 18 138/71 (93) 99 Room Air 01/23/18 07:00 96 138/71 01/23/18 06:00 80 20 118/58 (78) 94 Room Air 01/23/18 05:00 147 16 141/80 (100) 94 Room Air 01/23/18 03:00 110 20 131/80 (97) 95 Room Air 01/23/18 02:00 104 22 119/68 (85) 94 Room Air 01/23/18 01:00 100 19 159/76 (103) 94 Room Air 01/22/18 23:00 108 18 149/103 (118) 95 01/22/18 21:52 125 18 145/74 (97) 95 Room Air 01/22/18 21:00 130 18 130/56 (80) 96 Room Air I/O 01/22/18 01/22/18 01/22/18 01/23/18 01/23/18 01/23/18 07:00 15:00 23:00 07:00 15:00 23:00 Intake Total 100 ml 320 ml Output Total 450 ml 100 ml Balance 100 ml -130 ml -100 ml Intake Oral 320 ml IV Total 100 ml Output Urine Total 450 ml 100 ml # Voids 1 Result Diagram: 01/23/18 0354 01/23/18 0354 Objective Remarks GENERAL: patient lying in bed. Appears comfortable. SKIN: Warm and dry. HEAD: Normocephalic. EYES: No scleral icterus. No injection or drainage. NECK: Supple, trachea midline. No JVD. CARDIOVASCULAR: Regular rate and rhythm without murmurs, gallops, or rubs. RESPIRATORY: Breath sounds equal bilaterally. No accessory muscle use. GASTROINTESTINAL: Abdomen soft, non-tender, nondistended. MUSCULOSKELETAL: No cyanosis, or edema. BACK: Nontender without obvious deformity. No CVA tenderness. A/P Assessment and Plan //Severe sepsis on admission -Leukocytosis, tachycardia, acute kidney injury, UTI on urinalysis = Chest x-ray does not appear infectious. Cultures pending, negative to date. Continue antibiotics. //new onset afib with RVR- rate is now controlled with by mouth Cardizem. = Cardiology following. Appreciate assistance. //cough, possible early viral vs bacterial infection = Improving. Start ipratropium neb Continue antibiotics. Continue to monitor. //htn. Blood pressure acceptable. Continue current medication regimen. //dm -01/23. Start diabetic diet and insulin sliding scale. Discharge Planning pending cardiology clearance. PT following. Johnathan Gomez MD Jan 23, 2018 20:33
[2018-01-23] MEDS ORDERED: DEXTROSE 50% IN WATER 50 ML VIAL(D50) IV PUSH PRN (20:45)
[2018-01-23] MEDS ORDERED: GLUCAGON 1 MG/ML VIAL OTHER PRN (20:45)
[2018-01-23] MEDS: INSULIN ASPART SUPPLEMENTAL SCALE SQ SCH (21:00)
[2018-01-23] MEDS: ATORVASTATIN 10 MG TAB PO SCH (21:25)
[2018-01-23] MEDS: METOPROLOL TARTRATE 50 MG TAB PO SCH (21:26)
[2018-01-23] MEDS: cefTRIAXone INJ 1,000 MG in SODIUM CHLORIDE 0.9% INJ 100 ML IV SCH (21:26)
[2018-01-24] VITALS (11 sets, daily range): BP systolic 118–158; BP diastolic 58–97; PULSE 53–147; RESP 18; TEMP 97.2–98.2; O2SAT 91–96
[2018-01-24] MEDS: RESP: IPRATROPIUM 0.5 MG/2.5 ML NEB NEB SCH ×4 (03:09→20:49)
[2018-01-24 05:53] LABS: AUTOMATED NEUTROPHIL # 6.2 TH/MM3 (1.8-7.7); BASOPHIL % 0.1 % (0.0-2.0); EOSINOPHIL % 0.2 % (0.0-4.0); HEMATOCRIT 42.8 % (39.0-51.0); HEMOGLOBIN 14.7 GM/DL (13.0-17.0); LYMPHOCYTE # 1.9 TH/MM3 (1.0-4.8); MEAN CELL VOLUME 90.7 FL (80.0-100.0); MEAN CORPUSCULAR HEMOGLOBIN 31.2 PG (27.0-34.0); MEAN CORPUSCULAR HGB CONC 34.4 % (32.0-36.0); MEAN PLATELET VOLUME 7.8 FL (7.0-11.0); MONO % 9.5 % (0.0-8.0); MONOCYTE # 0.9 TH/MM3 (0-0.9); NEUT % 69.2 % (16.0-70.0); PLATELET COUNT 221 TH/MM3 (150-450); RED BLOOD COUNT 4.72 MIL/MM3 (4.50-5.90); RED CELL DISTRIBUTION WIDTH 14.2 % (11.6-17.2)
[2018-01-24 06:13] LABS: ALBUMIN 2.8 GM/DL (3.4-5.0); BICARBONATE 21.8 MEQ/L (21.0-32.0); CALCIUM 8.3 MG/DL (8.5-10.1); CREATININE 1.11 MG/DL (0.60-1.30); MAGNESIUM 2.4 MG/DL (1.5-2.5); PHOSPHORUS 2.3 MG/DL (2.5-4.9)
[2018-01-24] MEDS: INSULIN ASPART SUPPLEMENTAL SCALE SQ SCH ×4 (08:00→21:00)
[2018-01-24] MEDS: DULoxetine HCl DR 60 MG CAP PO SCH (08:18)
[2018-01-24] MEDS: GLIMEPIRIDE 2 MG TAB PO SCH (08:19)
[2018-01-24] MEDS: DILTIAZEM HCL 60 MG TAB PO SCH (08:19)
[2018-01-24] MEDS: APIXABAN 5 MG TABLET PO SCH (08:19)
[2018-01-24] MEDS: SODIUM CHLORIDE 0.9% FLUSH 10 ML FLUSH IV FLUSH SCH ×2 (08:19→21:47)
[2018-01-24] MEDS: LOSARTAN 25 MG TAB PO SCH (08:19)
[2018-01-24] MEDS: METOPROLOL TARTRATE 50 MG TAB PO SCH ×2 (08:24→21:47)
[2018-01-24] MEDS: ASPIRIN EC 81 MG TABEC PO SCH (08:25)
--- NOTE | 2018-01-24 09:49 | ECHRPT ---
Indication: ATRIAL FIB/FLUTTER CONCLUSIONS Normal left ventricular size. Mild concentric left ventricular hypertrophy. The left ventricular systolic function is low normal with an estimated ejection fraction in the rang e of 50- 55%. The left atrial size is mildly dilated. The right atrial size is [id number] dilated. No atrial level shunt is demonstrated by color flow Doppler interrogation. Lsfj-su-qaynywsp mitral valve regurgitation. Aortic valve sclerosis is present. There is trace tricuspid valve regurgitation. The estimated pulmonary arterial pressure is 51 mmHg BP: 118 / 58 HR: 80 Rhythm: Atrial fibrillation, Atrial flut ter MEASUREMENTS (Male / Female) Normal Values Technical Quality:Very technically difficult study 2D ECHO LV Diastolic Diameter PLAX 4.7 cm 4.2 - 5.9 / 3.9 - 5.3 cm LV Systolic Diameter PLAX 3.8 cm IVS Diastolic Thickness 1.3 cm 0.6 - 1.0 / 0.6 - 0.9 cm LVPW Diastolic Thickness 1.1 cm 0.6 - 1.0 / 0.6 - 0.9 cm LV Relative Wall Thickness 0.5 RV Internal Dim ED PLAX 3.2 cm LA Systolic Diameter LX 4.1 cm 3.0 - 4.0 / 2.7 - 3.8 cm M-MODE Aortic Root Diameter MM 2.8 cm LA Systolic Diameter MM 4.0 cm LA Ao Ratio MM 1.4 AV Cusp Separation MM 1.9 cm DOPPLER AV Peak Velocity 112.0 cm/s AV Peak Gradient 5.0 mmHg AV Mean Gradient 3.0 mmHg AV Velocity Time Integral 21.5 cm LVOT Peak Velocity 79.9 cm/s LVOT Peak Gradient 2.6 mmHg LVOT Velocity Time Integral 16.7 cm Mitral E Point Velocity 125.7 cm/s LV E' Lateral Velocity 8.7 cm/s Mitral E to LV E' Lateral Ratio 14.4 LV E' Septal Velocity 9.8 cm/s Mitral E to LV E' Septal Ratio 12.9 TR Peak Velocity 319.0 cm/s TR Peak Gradient 40.7 mmHg Right Atrial Pressure 10.0 mmHg Pulmonary Artery Systolic Pressu 50.7 mmHg Right Ventricular Systolic Press 50.7 mmHg FINDINGS LEFT VENTRICLE Normal left ventricular size. Mild concentric left ventricular hypertrophy. The left ventricular systolic function is low normal with an estimated ejection fraction in the rang e of 50- 55%. RIGHT VENTRICLE Normal right ventricular size and systolic function. LEFT ATRIUM The left atrial size is mildly dilated. RIGHT ATRIUM The right atrial size is [id number] dilated. ATRIAL SEPTUM No atrial level shunt is demonstrated by color flow Doppler interrogation. AORTA The aortic root and proximal ascending aorta are not well visualized. MITRAL VALVE [id number]-lb-[id number] mitral valve regurgitation. AORTIC VALVE Aortic valve sclerosis is present. TRICUSPID VALVE There is trace tricuspid valve regurgitation. The estimated pulmonary arterial pressure is 51 mmHg PULMONARY VALVE The pulmonary valve is not well visualized. VESSELS The inferior vena cava is normal in size. Luke Rios MD (Electronically Signed) Final Date:24 January 2018 09:48
[2018-01-24] MEDS ORDERED: DILTIAZEM HCL 25 MG/5 ML VIAL IV PUSH ONE (10:30)
--- NOTE | 2018-01-24 10:37 | PD.CARD.PN ---
Subjective Subjective Remarks The patient's HR is elevated this morning at 145 bpm, Afib RVR despite cardizem PO and metoprolol PO this morning. He is SOB and "anxious." Last night, he developed gross hematuria. H/H stable compared to yesterday. Eliquis was started yesterday. He denies CP. he declined breathing treatment this morning. (Mar Lyn) Objective Medications Current Medications Medications (Trade) Dose Ordered Sig/Tamia Route Start Time Stop Time Status Last Admin (NS Flush) 2 ml UNSCH PRN IV FLUSH 01/22/18 14:15 01/23/18 05:48 (NS Flush) 2 ml BID IV FLUSH 01/22/18 21:00 01/24/18 08:19 (Narcan Inj) 0.4 mg UNSCH PRN IV PUSH 01/22/18 14:15 (Lipitor) 10 mg HS PO 01/22/18 21:00 01/23/18 21:25 (Cymbalta Dr) 60 mg DAILY PO 01/23/18 09:00 01/24/18 08:18 (Amaryl) 2 mg DAILY PO 01/23/18 09:00 01/24/18 08:19 (Ativan) 0.5 mg HS PRN PO 01/22/18 14:30 (Cozaar) 25 mg DAILY PO 01/23/18 09:00 01/24/18 08:19 Diltiazem HCl 125 mg/Sodium Chloride 125 ml @ 5 mls/hr TITRATE PRN IV 01/22/18 18:15 01/23/18 13:27 Ceftriaxone Sodium 1000 mg/ Sodium Chloride 100 ml @ 200 mls/hr Q24H IV 01/22/18 22:00 01/23/18 21:26 (Eliquis) 5 mg BID PO 01/23/18 10:15 Future Hold 01/24/18 08:19 (Lopressor) 50 mg BID PO 01/23/18 21:00 01/24/18 08:24 (Cardizem) 60 mg QID PO 01/23/18 13:45 Future Hold 01/24/18 08:19 (Ecotrin Ec) 81 mg DAILY PO 01/24/18 09:00 01/24/18 08:25 (NovoLOG SUPPLEMENTAL SCALE) 1 ACHS SLIDING SCALE SQ 01/23/18 21:00 (Atrovent Neb) 0.5 mg Q6HR NEB NEB 01/23/18 22:00 (D50w (Vial) Inj) 50 ml UNSCH PRN IV PUSH 01/23/18 20:45 (Glucagon Inj) 1 mg UNSCH PRN OTHER 01/23/18 20:45 (Cardizem Inj) 20 mg BOLUS ONCE IV PUSH 01/24/18 10:30 01/24/18 10:31 Vital Signs / I&O Vital Signs Date Time Temp Pulse Resp B/P (MAP) Pulse Ox O2 Delivery O2 Flow Rate FiO2 01/24/18 07:30 97.7 132 18 158/97 (117) 95 01/24/18 04:22 116 01/24/18 04:00 97.2 100 18 157/74 (101) 94 01/24/18 00:00 98.2 77 18 122/62 (82) 92 01/24/18 00:00 53 01/23/18 20:01 71 01/23/18 20:00 97.5 103 16 129/62 (84) 97 01/23/18 16:09 97.9 85 20 152/85 (107) 95 01/23/18 13:43 01/23/18 13:27 65 153/65 01/23/18 13:11 64 18 153/65 (94) 01/23/18 13:00 65 153/65 01/23/18 12:00 134 23 149/87 (107) 95 Room Air 01/23/18 12:00 134 149/87 01/23/18 11:00 110 160/67 01/23/18 11:00 108 16 160/67 (98) 95 I/O 01/23/18 01/23/18 01/23/18 01/24/18 01/24/18 01/24/18 07:00 15:00 23:00 07:00 15:00 23:00 Intake Total 100 ml 320 ml 0 ml Output Total 450 ml 100 ml Balance 100 ml -130 ml -100 ml 0 ml Intake Oral 320 ml 0 ml IV Total 100 ml Output Urine Total 450 ml 100 ml # Voids 1 3 # Bowel Movements 0 Physical Exam GENERAL: Elderly male, mildly anxious SKIN: Warm and dry. HEAD: Normocephalic. EYES: No scleral icterus. No injection or drainage. NECK: Supple, trachea midline. No JVD CARDIOVASCULAR: Irreg irreg, tachycardia RESPIRATORY: Global expiratory wheezing and scattered rales. GASTROINTESTINAL: Abdomen soft, non-tender, nondistended. : Dark red colored urine in urinal MUSCULOSKELETAL: No cyanosis, or edema. BACK: Nontender without obvious deformity. Laboratory Laboratory Tests Test 01/24/18 04:10 White Blood Count 9.0 TH/MM3 Red Blood Count 4.72 MIL/MM3 Hemoglobin 14.7 GM/DL Hematocrit 42.8 % Mean Corpuscular Volume 90.7 FL Mean Corpuscular Hemoglobin 31.2 PG Mean Corpuscular Hemoglobin Concent 34.4 % Red Cell Distribution Width 14.2 % Platelet Count 221 TH/MM3 Mean Platelet Volume 7.8 FL Neutrophils (%) (Auto) 69.2 % Lymphocytes (%) (Auto) 21.0 % Monocytes (%) (Auto) 9.5 % Eosinophils (%) (Auto) 0.2 % Basophils (%) (Auto) 0.1 % Neutrophils # (Auto) 6.2 TH/MM3 Lymphocytes # (Auto) 1.9 TH/MM3 Monocytes # (Auto) 0.9 TH/MM3 Eosinophils # (Auto) 0.0 TH/MM3 Basophils # (Auto) 0.0 TH/MM3 CBC Comment DIFF FINAL Differential Comment Blood Urea Nitrogen 21 MG/DL Creatinine 1.11 MG/DL Random Glucose 227 MG/DL Albumin 2.8 GM/DL Calcium Level 8.3 MG/DL Phosphorus Level 2.3 MG/DL Magnesium Level 2.4 MG/DL Sodium Level 140 MEQ/L Potassium Level 4.2 MEQ/L Chloride Level 107 MEQ/L Carbon Dioxide Level 21.8 MEQ/L Anion Gap 11 MEQ/L Estimat Glomerular Filtration Rate 63 ML/MIN Imaging Last 72 hours Impressions Chest X-Ray 01/22/18 1216 Signed Impressions: Service Date/Time: Monday, January 22, 2018 13:27 - CONCLUSION: 1. Hyperaeration bilaterally. 2. Mild atelectasis versus scarring in both lung bases. 3. Otherwise, no focal or acute pulmonary infiltrates. Carlos Loepz MD (Mar Lyn) Assessment and Plan Assessment and Plan New onset atrial fibrillation with RVR. CHADSVASC score 4 on the basis of age, HTN, DM SOB due to above Mild elevation of troponin on admission due to KEV and tachycardia HTN HLD UTI PLAN: Hold Eliquis and consult Dr Mika Simeon who he is known to Rebolus cardizem now and resume cardizem gtt Increase metoprolol 50 mg TID Hold parameters for losartan Check EKG, troponin and CXR Check TSH We will plan ischemic work up outpatient The patient was seen and evaluated by Dr Rodgers who completed face to face encounter and physical exam and participated in evaluation and management. (Mar Lyn) Assessment and Plan The exam, history, and the medical decision-making described in the above note were completed with the assistance of the mid-level provider. I reviewed and agree with the findings presented. I attest that I had a [id number]-smwa encounter with the patient on the same day, and personally performed and documented my assessment and findings in the medical record. Will restart eliquis at a lower dose as o/p. Will do further estrella as op (Noemy Rodgers MD) Mar Lyn Jan 24, 2018 10:37 Noemy Rodgers MD Jan 25, 2018 14:55
--- NOTE | 2018-01-24 11:25 | RADRPT ---
EXAM DATE/TIME: 01/24/2018 10:50 [facility] COMPARISON: CHEST PA & LAT, January 22, 2018, 13:27. INDICATIONS : Short of breath MEDICAL HISTORY : None. SURGICAL HISTORY : None. ENCOUNTER: Initial ACUITY: 4 - 6 days PAIN SCORE: 0/10 LOCATION: chest FINDINGS: A single view of the chest demonstrates the lungs to be symmetrically aerated without evidence of mas s, infiltrate or effusion. There is hyperaeration of both lung bower. There is platelike atelectasis in the right lung base. The left lung base is now clear. The cardiomediastinal contours are unremark able. Osseous structures are intact. CONCLUSION: 1. The previously noted atelectasis in the left lung base has cleared. 2. There is improving atelectasis in the right lung base. 3. No new infiltrates are demonstrated. Carlos Lopez MD on January 24, 2018 at 11:22 Board Certified Radiologist. This report was verified electronically.
[2018-01-24] MEDS: DILTIAZEM HCL 90 MG TAB PO SCH ×2 (13:55→17:53)
--- NOTE | 2018-01-24 14:12 | PD.CONS ---
[facility] Service Urology Consult Requested By Mar Lyn Reason for Consult hematuria Primary Care Physician Carlos Portillo MD Diagnosis: History of Present Illness 82y.o m admitted for treatment of A. fib. he is well known to [facility] practice, pt of Dr Sanchez. He has h/o BPH and had TURP several years ago. He also had hematuria in October and had work up with cystoscopy at that time, bled from prostate. He currently has no fever, no pain, urine is dark red color, possibly old bleeding. no dysuria. no difficulties voiding. He was started on Eliquis for A fib yesterday and since that time bleeding noted. Eliquis stopped for now. Review of Systems Except as stated in HPI: all other systems reviewed are Neg Past Family Social History Past Medical History HTN HLD "borderline diabetes" Basal cell carcinoma Former smoker Gastric ulcer Past Surgical History dermatologic removal of skin cancer EGD Allergies: Coded Allergies: No Known Allergies (Verified , 11/09/11) Family History none Social History Former smoker quit 1995 Former ETOH last drink 1979 Physical Exam Vital Signs Date Time Temp Pulse Resp B/P (MAP) Pulse Ox O2 Delivery O2 Flow Rate FiO2 01/24/18 10:10 147 150/92 (111) 01/24/18 07:30 97.7 132 18 158/97 (117) 95 01/24/18 04:22 116 01/24/18 04:00 97.2 100 18 157/74 (101) 94 01/24/18 00:00 98.2 77 18 122/62 (82) 92 01/24/18 00:00 53 01/23/18 20:01 71 01/23/18 20:00 97.5 103 16 129/62 (84) 97 01/23/18 16:09 97.9 85 20 152/85 (107) 95 Physical Exam GENERAL: This is a well-nourished, well-developed patient, in no apparent distress. NECK: Supple CARDIOVASCULAR: irregular rhythm, no murmurs RESPIRATORY: Clear to auscultation. Breath sounds equal bilaterally. No wheezes , rales, or rhonchi. GASTROINTESTINAL: Abdomen soft, non-tender, nondistended. . GENITOURINARY: Normal genital exam MUSCULOSKELETAL: Extremities without clubbing, cyanosis, or edema.. NEUROLOGICAL: Awake and alert. . Lab results reviewed: Yes Laboratory Tests Test 01/24/18 04:10 01/24/18 10:58 White Blood Count 9.0 Red Blood Count 4.72 Hemoglobin 14.7 Hematocrit 42.8 Mean Corpuscular Volume 90.7 Mean Corpuscular Hemoglobin 31.2 Mean Corpuscular Hemoglobin Concent 34.4 Red Cell Distribution Width 14.2 Platelet Count 221 Mean Platelet Volume 7.8 Neutrophils (%) (Auto) 69.2 Lymphocytes (%) (Auto) 21.0 Monocytes (%) (Auto) 9.5 Eosinophils (%) (Auto) 0.2 Basophils (%) (Auto) 0.1 Neutrophils # (Auto) 6.2 Lymphocytes # (Auto) 1.9 Monocytes # (Auto) 0.9 Eosinophils # (Auto) 0.0 Basophils # (Auto) 0.0 CBC Comment DIFF FINAL Differential Comment Blood Urea Nitrogen 21 Creatinine 1.11 Random Glucose 227 Albumin 2.8 Calcium Level 8.3 Phosphorus Level 2.3 Magnesium Level 2.4 Sodium Level 140 Potassium Level 4.2 Chloride Level 107 Carbon Dioxide Level 21.8 Anion Gap 11 Estimat Glomerular Filtration Rate 63 Troponin I LESS THAN 0.02 Thyroid Stimulating Hormone 3rd Gen 0.685 Date/Time Source Procedure Growth Status 01/22/18 14:40 Nasal Washing Influenza Types A,B Antigen (JAD) - Final NEGATIVE FOR FLU A AND B ANTIGEN.... Complete 01/22/18 18:00 Urine Clean Catch Urine Culture - Final NO GROWTH IN 48 HOURS. Complete Result Diagram: 01/24/18 0410 01/24/18 0410 Imaging Last Impressions Chest X-Ray 01/24/18 0000 Signed Impressions: Service Date/Time: January 10:50 - CONCLUSION: 1. The previously noted atelectasis in the left lung base has cleared. 2. There is improving atelectasis in the right lung base. 3. No new infiltrates are demonstrated. Carlos Lopez MD Assessment and Plan Assessment and Plan 82y.o m with Diane, was on Eliquis, but on hold now due to hematuria Urology consulted - Continue management as per primary team - Pt to drink more fluids if its ok by cardiology - He had hematuria work up in October 2017, no additional intervention now needed - Start Proscar daily to help with prostatic bleeding - Restart blood thinners when urine will clear up Discussed Condition With Dr Sanchez who agrees with this plan Thomas Mane Jan 24, 2018 14:12
--- NOTE | 2018-01-24 15:13 | HHI.PR ---
Subjective Remarks Pt denies any chest pains but does endorse some pressure which has been present since admission and not worsened. no nausea or vomiting, no palpitations admits to hematuria. States he did speak w urologist today at bedside Objective Vitals Vital Signs Date Time Temp Pulse Resp B/P (MAP) Pulse Ox O2 Delivery O2 Flow Rate FiO2 01/24/18 12:00 98.0 77 18 134/62 (86) 96 01/24/18 10:10 147 150/92 (111) 01/24/18 07:30 97.7 132 18 158/97 (117) 95 01/24/18 04:22 116 01/24/18 04:00 97.2 100 18 157/74 (101) 94 01/24/18 00:00 98.2 77 18 122/62 (82) 92 01/24/18 00:00 53 01/23/18 20:01 71 01/23/18 20:00 97.5 103 16 129/62 (84) 97 01/23/18 16:09 97.9 85 20 152/85 (107) 95 I/O 01/23/18 01/23/18 01/23/18 01/24/18 01/24/18 01/24/18 07:00 15:00 23:00 07:00 15:00 23:00 Intake Total 100 ml 320 ml 0 ml Output Total 450 ml 100 ml Balance 100 ml -130 ml -100 ml 0 ml Intake Oral 320 ml 0 ml IV Total 100 ml Output Urine Total 450 ml 100 ml # Voids 1 3 # Bowel Movements 0 Result Diagram: 01/24/18 0410 01/24/18 0410 Imaging Last Impressions Chest X-Ray 01/24/18 0000 Signed Impressions: Service Date/Time: January 10:50 - CONCLUSION: 1. The previously noted atelectasis in the left lung base has cleared. 2. There is improving atelectasis in the right lung base. 3. No new infiltrates are demonstrated. Carlos Lopez MD Objective Remarks GENERAL: patient lying in bed. Appears comfortable. EYES: No scleral icterus. No injection or drainage. CARDIOVASCULAR: distant, irregularly irregular RESPIRATORY: Breath sounds equal bilaterally. No accessory muscle use. GASTROINTESTINAL: Abdomen soft, non-tender, nondistended. MUSCULOSKELETAL moves extremities A/P Assessment and Plan //SIRS -Leukocytosis, tachycardia, acute kidney injury, thought to have a UTI on admission but urine cx neg = Chest x-ray does not appear infectious. d/c abx //new onset afib with RVR- rate not controlled with by mouth Cardizem. po cardizem adjusted Cardiology following and ordered bolus today and recommends continuing cardizem gtt. They have also adjusted metoprolol dose Appreciate assistance. //cough, possible early viral vs bacterial infection = Improving. ipratropium neb Continue to monitor. chest x-ray neg for PNA. //htn. Blood pressure acceptable. Continue current medication regimen. //dm -/. diabetic diet and insulin sliding scale. //hematuria Urology evaluated the patient - Pt to drink more fluids if its ok by cardiology - Pt had hematuria work up in October 2017, no additional intervention now needed - He was Started on Proscar daily to help with prostatic bleeding - ok to Restart blood thinners when urine will clear up Discharge Planning d/c once HR better controlled and cleared by cards Anum Aguilar MD Jan 24, 2018 15:13
[2018-01-24] MEDS: FINASTERIDE 5 MG TAB PO SCH (17:53)
[2018-01-24] MEDS: ATORVASTATIN 10 MG TAB PO SCH (21:47)
[2018-01-25] VITALS (7 sets, daily range): BP systolic 143–149; BP diastolic 62–63; PULSE 29–98; RESP 17–18; TEMP 97.1–98.1; O2SAT 92
[2018-01-25] MEDS: DILTIAZEM HCL 90 MG TAB PO SCH ×3 (00:02→14:08)
[2018-01-25] MEDS: RESP: IPRATROPIUM 0.5 MG/2.5 ML NEB NEB SCH ×2 (02:25→09:44)
[2018-01-25 07:58] LABS: AUTOMATED NEUTROPHIL # 5.9 TH/MM3 (1.8-7.7); BASOPHIL % 0.2 % (0.0-2.0); EOSINOPHIL % 0.1 % (0.0-4.0); HEMATOCRIT 41.5 % (39.0-51.0); HEMOGLOBIN 14.6 GM/DL (13.0-17.0); LYMPH % 22.7 % (9.0-44.0); MEAN CELL VOLUME 89.4 FL (80.0-100.0); MEAN CORPUSCULAR HEMOGLOBIN 31.5 PG (27.0-34.0); MEAN CORPUSCULAR HGB CONC 35.2 % (32.0-36.0); MEAN PLATELET VOLUME 7.5 FL (7.0-11.0); MONO % 10.7 % (0.0-8.0); NEUT % 66.3 % (16.0-70.0); PLATELET COUNT 273 TH/MM3 (150-450); RED BLOOD COUNT 4.65 MIL/MM3 (4.50-5.90); RED CELL DISTRIBUTION WIDTH 14.3 % (11.6-17.2); WHITE BLOOD COUNT 8.9 TH/MM3 (4.0-11.0)
[2018-01-25 08:00] LABS: BICARBONATE 20.9 MEQ/L (21.0-32.0); CALCIUM 8.2 MG/DL (8.5-10.1); CREATININE 0.96 MG/DL (0.60-1.30)
[2018-01-25] MEDS: INSULIN ASPART SUPPLEMENTAL SCALE SQ SCH ×2 (08:00→12:00)
[2018-01-25] MEDS ORDERED: FUROSEMIDE 40 MG/4 ML VIAL IV PUSH ONE (09:30)
[2018-01-25] MEDS: SODIUM CHLORIDE 0.9% FLUSH 10 ML FLUSH IV FLUSH SCH (10:19)
[2018-01-25] MEDS: DULoxetine HCl DR 60 MG CAP PO SCH (10:19)
[2018-01-25] MEDS: LOSARTAN 25 MG TAB PO SCH (10:20)
[2018-01-25] MEDS: GLIMEPIRIDE 2 MG TAB PO SCH (10:20)
[2018-01-25] MEDS: FINASTERIDE 5 MG TAB PO SCH (10:20)
[2018-01-25] MEDS: METOPROLOL TARTRATE 50 MG TAB PO SCH (10:20)
[2018-01-25] MEDS: ASPIRIN EC 81 MG TABEC PO SCH (10:22)
--- NOTE | 2018-01-25 10:48 | PD.CARD.PN ---
Subjective Subjective Remarks HR stabled yesterday before initiating Cardizem gtt. Transitioned to higher dose cardizem 90 mg PO and continued metoprolol. Evaluated by Urology. Hematuria resolved. This morning the patient feels "wiped out. " (Mar Lyn) Objective Medications Current Medications Medications (Trade) Dose Ordered Sig/Tamia Route Start Time Stop Time Status Last Admin (NS Flush) 2 ml UNSCH PRN IV FLUSH 01/22/18 14:15 01/23/18 05:48 (NS Flush) 2 ml BID IV FLUSH 01/22/18 21:00 01/25/18 10:19 (Narcan Inj) 0.4 mg UNSCH PRN IV PUSH 01/22/18 14:15 (Lipitor) 10 mg HS PO 01/22/18 21:00 01/24/18 21:47 (Cymbalta Dr) 60 mg DAILY PO 01/23/18 09:00 01/25/18 10:19 (Amaryl) 2 mg DAILY PO 01/23/18 09:00 01/25/18 10:20 (Ativan) 0.5 mg HS PRN PO 01/22/18 14:30 (Cozaar) 25 mg DAILY PO 01/23/18 09:00 01/25/18 10:20 Diltiazem HCl 125 mg/Sodium Chloride 125 ml @ 5 mls/hr TITRATE PRN IV 01/22/18 18:15 01/23/18 13:27 (Eliquis) 5 mg BID PO 01/23/18 10:15 Future Hold 01/24/18 08:19 (Lopressor) 50 mg BID PO 01/23/18 21:00 01/25/18 10:20 (Ecotrin Ec) 81 mg DAILY PO 01/24/18 09:00 01/25/18 10:22 (NovoLOG SUPPLEMENTAL SCALE) 1 ACHS SLIDING SCALE SQ 01/23/18 21:00 01/24/18 13:55 (Atrovent Neb) 0.5 mg Q6HR NEB NEB 01/23/18 22:00 01/25/18 09:44 (D50w (Vial) Inj) 50 ml UNSCH PRN IV PUSH 01/23/18 20:45 (Glucagon Inj) 1 mg UNSCH PRN OTHER 01/23/18 20:45 (Cardizem) 90 mg Q6HR PO 01/24/18 13:00 01/25/18 06:36 (Proscar) 5 mg DAILY PO 01/24/18 14:15 01/25/18 10:20 Vital Signs / I&O Vital Signs Date Time Temp Pulse Resp B/P (MAP) Pulse Ox O2 Delivery O2 Flow Rate FiO2 01/25/18 08:44 97.8 79 18 149/63 (91) 92 01/25/18 04:02 97.1 66 18 144/63 (90) 92 01/25/18 04:00 67 01/25/18 00:00 65 01/24/18 23:45 97.6 72 18 135/63 (87) 91 01/24/18 21:49 97.6 71 18 136/65 (88) 92 01/24/18 20:00 65 01/24/18 16:00 98.1 64 18 118/58 (78) 94 01/24/18 16:00 80 01/24/18 12:00 80 01/24/18 12:00 98.0 77 18 134/62 (86) 96 I/O 01/24/18 01/24/18 01/24/18 01/25/18 01/25/18 01/25/18 07:00 15:00 23:00 07:00 15:00 23:00 Intake Total 0 ml 1000 ml 120 ml Output Total 300 ml Balance 0 ml 700 ml 120 ml Intake Oral 0 ml 1000 ml 120 ml Output Urine Total 300 ml # Voids 3 2 # Bowel Movements 0 1 1 Physical Exam GENERAL: Elderly male, appears fatigued SKIN: Warm and dry. HEAD: Normocephalic. EYES: No scleral icterus. No injection or drainage. NECK: Supple, trachea midline. No JVD CARDIOVASCULAR: Irreg irreg, normal rate RESPIRATORY: Global expiratory wheezing and scattered rales. GASTROINTESTINAL: Abdomen soft, non-tender, nondistended. : Dark red yellow urine in urinal MUSCULOSKELETAL: No cyanosis, or edema. BACK: Nontender without obvious deformity. Laboratory Laboratory Tests Test 01/24/18 10:58 01/25/18 06:30 Troponin I LESS THAN 0.02 NG/ML Thyroid Stimulating Hormone 3rd Gen 0.685 uIU/ML White Blood Count 8.9 TH/MM3 Red Blood Count 4.65 MIL/MM3 Hemoglobin 14.6 GM/DL Hematocrit 41.5 % Mean Corpuscular Volume 89.4 FL Mean Corpuscular Hemoglobin 31.5 PG Mean Corpuscular Hemoglobin Concent 35.2 % Red Cell Distribution Width 14.3 % Platelet Count 273 TH/MM3 Mean Platelet Volume 7.5 FL Neutrophils (%) (Auto) 66.3 % Lymphocytes (%) (Auto) 22.7 % Monocytes (%) (Auto) 10.7 % Eosinophils (%) (Auto) 0.1 % Basophils (%) (Auto) 0.2 % Neutrophils # (Auto) 5.9 TH/MM3 Lymphocytes # (Auto) 2.0 TH/MM3 Monocytes # (Auto) 1.0 TH/MM3 Eosinophils # (Auto) 0.0 TH/MM3 Basophils # (Auto) 0.0 TH/MM3 CBC Comment DIFF FINAL Differential Comment Blood Urea Nitrogen 20 MG/DL Creatinine 0.96 MG/DL Random Glucose 202 MG/DL Calcium Level 8.2 MG/DL Sodium Level 138 MEQ/L Potassium Level 3.8 MEQ/L Chloride Level 106 MEQ/L Carbon Dioxide Level 20.9 MEQ/L Anion Gap 11 MEQ/L Estimat Glomerular Filtration Rate 75 ML/MIN Imaging Last 72 hours Impressions Chest X-Ray 01/24/18 0000 Signed Impressions: Service Date/Time: January 10:50 - CONCLUSION: 1. The previously noted atelectasis in the left lung base has cleared. 2. There is improving atelectasis in the right lung base. 3. No new infiltrates are demonstrated. Carlos Lopez MD Chest X-Ray 01/22/18 1216 Signed Impressions: Service Date/Time: Monday, January 22, 2018 13:27 - CONCLUSION: 1. Hyperaeration bilaterally. 2. Mild atelectasis versus scarring in both lung bases. 3. Otherwise, no focal or acute pulmonary infiltrates. Carlos Lopez MD (Mar Lyn) Assessment and Plan Assessment and Plan New onset atrial fibrillation with RVR. CHADSVASC score 4 on the basis of age, HTN, DM SOB due to above Mild elevation of troponin on admission due to KEV and tachycardia HTN HLD UTI Hematuria on Eliquis PLAN: Resume Eliquis 2.5 mg on sunday Transition to cardizem LA 360 mg qd Continue metoprolol Lasix IV once We will plan ischemic work up outpatient Okay to [place] from cardiac standpoint. Follow up in the office in 1-2 weeks. The patient was seen and evaluated by Dr Rodgers who completed face to face encounter and physical exam and participated in evaluation and management. (Mar Lyn) Assessment and Plan The exam, history, and the medical decision-making described in the above note were completed with the assistance of the mid-level provider. I reviewed and agree with the findings presented. I attest that I had a [id number] encounter with the patient on the same day, and personally performed and documented my assessment and findings in the medical record. will try eliquis next week , discussed with Dr Khanna (Noemy Rodgers MD) Mar Lyn Jan 25, 2018 10:48 Noemy Rodgers MD Jan 29, 2018 14:05
[2018-01-25] MEDS ORDERED: APIX2.5T PO (11:36)
[2018-01-25] MEDS ORDERED: METO-309 PO (11:36)
[2018-01-25] MEDS ORDERED: ECASA81 PO (11:36)
[2018-01-25] MEDS ORDERED: FINA5TAB2 PO (11:37)
--- NOTE | 2018-01-25 14:43 | HHI.DS ---
Discharge Summary Admission Date Jan 22, 2018 at 18:14 Discharge Date: Jan 25, 2018 Admitting Diagnosis new onset a-fib with RVR (1) Atrial fibrillation with rapid ventricular response ICD Code: I48.91 - Unspecified atrial fibrillation Status: Acute Procedures none Brief History - From Admission History from patient, ER physician, medication, and if her medical records. feeling winded for past 2-3 days thus went to pcp at pcp office, ekg was done, and was in afib with rvr 150s no feeling of palpitations per pt no chest pain has cough adn phlegm - 2-3 days as well but has been waking up with drenched sweat "in the beginning" past 2-3 days no headaches, no sinus discharge has been taking liquorish candies and stool is at times black no other symptoms went to dr taylor office this am states he takes all his meds ALL IN ONE SHOT at night around 1000p.m. CBC/BMP: 01/25/18 0630 01/25/18 0630 Significant Findings Laboratory Tests Test 01/22/18 18:00 01/22/18 18:15 01/23/18 01:05 01/23/18 03:54 Urine Turbidity HAZY (CLEAR) Urine Protein 30 mg/dL (NEG-TRACE) Urine Glucose (UA) 1000 mg/dL (NEG) Urine Ketones 10 mg/dL (NEG) Urine Occult Blood MOD (NEG) Urine Leukocyte Esterase LARGE (NEG) Urine RBC 58 /hpf (0-3) Urine WBC 111 /hpf (0-5) Urine Bacteria OCC /hpf (NONE) Troponin I LESS THAN 0.02 NG/ML White Blood Count 12.1 TH/MM3 (4.0-11.0) Neutrophils (%) (Auto) 72.8 % (16.0-70.0) Monocytes (%) (Auto) 9.6 % (0.0-8.0) Neutrophils # (Auto) 8.8 TH/MM3 (1.8-7.7) Monocytes # (Auto) 1.2 TH/MM3 (0-0.9) Blood Urea Nitrogen 19 MG/DL (7-18) Random Glucose 230 MG/DL (74-106) Calcium Level 8.4 MG/DL (8.5-10.1) Estimat Glomerular Filtration Rate 65 ML/MIN (>89) Test 01/24/18 04:10 01/24/18 10:58 01/25/18 06:30 Monocytes (%) (Auto) 9.5 % (0.0-8.0) 10.7 % (0.0-8.0) Blood Urea Nitrogen 21 MG/DL (7-18) 20 MG/DL (7-18) Random Glucose 227 MG/DL (74-106) 202 MG/DL (74-106) Albumin 2.8 GM/DL (3.4-5.0) Calcium Level 8.3 MG/DL (8.5-10.1) 8.2 MG/DL (8.5-10.1) Phosphorus Level 2.3 MG/DL (2.5-4.9) Estimat Glomerular Filtration Rate 63 ML/MIN (>89) 75 ML/MIN (>89) Troponin I LESS THAN 0.02 NG/ML Monocytes # (Auto) 1.0 TH/MM3 (0-0.9) Carbon Dioxide Level 20.9 MEQ/L (21.0-32.0) Imaging Last Impressions Chest X-Ray 01/24/18 0000 Signed Impressions: Service Date/Time: January 10:50 - CONCLUSION: 1. The previously noted atelectasis in the left lung base has cleared. 2. There is improving atelectasis in the right lung base. 3. No new infiltrates are demonstrated. Carlos Lopez MD PE at Discharge Patient lying in bed, no acute distress Heart sounds indicate regular rate, regular rhythm, clear lungs bilaterally, unlabored breathing Hospital Course Patient was admitted, given Cardizem IV. Eventually he did well transitioning to p.o. Cardizem as well as transitioning from metoprolol succinate to Lopressor 50 mg twice daily. Patient's saturations remained stable and was afebrile. Patient maintained a stable gait going to the restroom. His hematuria had resolved and per urology consultation was clear to resume anticoagulation. Tolerated p.o. intake well. Was clear for discharge from cardiology standpoint. Patient and are both extensively counseled to start taking Eliquis on 01/28/18 per cardiology's recommendations and that should he have any further hematuria he was to was informed that should his hematuria resume to hold his home Eliquis and contact his urologist. Patient has met maximal benefit from hospitalization and is clinically stable for discharge. Pt Condition on Discharge: Stable Discharge Disposition: Discharge Home Discharge Time: > 30 minutes Discharge Instructions Follow up Referrals: Cardiology - 1 Week PCP Follow-up - 1 Week Urology - 1 Week New Medications: Apixaban (Eliquis) 2.5 Mg Tab 2.5 MG PO BID for Blood Clot Prevention, #60 TAB [address] (Aspirin DR) 81 Mg Tabdr 81 MG PO DAILY for Blood Clot Prevention, #30 TAB Finasteride (Finasteride) 5 Mg Tab 5 MG PO DAILY for prostate, #30 TAB Do not crush. Metoprolol Tartrate (Lopressor) 50 Mg Tab 50 MG PO BID for rate control, #60 TAB Continued Medications: Atorvastatin (Atorvastatin) 10 Mg Tab 10 MG PO HS for Cholesterol Management, #30 TAB [address] (Duloxetine DR) 60 Mg Capdr 60 MG PO DAILY, #30 CAP 0 Refills Glimepiride (Glimepiride) 2 Mg Tab 2 MG PO DAILY for Blood Sugar Management, #30 TAB 0 Refills Take with breakfast or first main meal Lorazepam (Lorazepam) 0.5 Mg Tab 0.5 MG PO HS PRN for ANXIETY AND/OR INSOMNIA, TAB 0 Refills Losartan (Losartan) 25 Mg Tab 25 MG PO DAILY for Blood Pressure Management, #30 TAB 0 Refills Discontinued Medications: Metoprolol Succinate ER 24 HR (Metoprolol Succinate ER 24 HR) 25 Mg Tab 25 MG PO DAILY, #30 TAB 0 Refills Bakari London MD Jan 25, 2018 14:43
--- NOTE | 2018-01-25 14:45 | HHI.DCPOC ---
Discharge Care Plan Diagnosis: (1) Atrial fibrillation with rapid ventricular response Additional Problems Start taking eliquis on 01/28/18. Goals to Promote Your Health * To prevent worsening of your condition and complications * To maintain your health at the optimal level Directions to Meet Your Goals Take your medications as prescribed Follow your dietary instruction Follow activity as directed Keep your appointments as scheduled Take your immunizations and boosters as scheduled If your symptoms worsen call your PCP, if no PCP go to Urgent Care Center or Emergency Room Smoking is Dangerous to Your Health. Avoid second hand smoke Call the 24-hour hour crisis hotline for domestic abuse at Bakari London MD Jan 25, 2018 14:45
[2018-01-25] MEDS ORDERED: CARD360C PO (14:46)
== END 2018-01-25 15:55 | disposition home or self-care (01) | DRG 309 ==
LOC: NEPC 11:52 → NEDA 14:12 → OBSVTOIN 18:14 → NEDH 22:14 → N04A 01-23 13:10
PROVIDERS: ADMIT Hospitalist; ATTEND Hospitalist
DX: I48.91 Unspecified atrial fibrillation (principal); E87.1 Hypo-osmolality and hyponatremia; N17.9 Acute kidney failure, unspecified; E87.5 Hyperkalemia; I42.9 Cardiomyopathy, unspecified; E11.9 Type 2 diabetes mellitus without complications; I10 Essential (primary) hypertension; D72.829 Elevated white blood cell count, unspecified; R05 Cough; N42.1 Congestion and hemorrhage of prostate; E78.5 Hyperlipidemia, unspecified; F41.9 Anxiety disorder, unspecified; Z79.84 Long term (current) use of oral hypoglycemic drugs; Z85.828 Personal history of other malignant neoplasm of skin; Z87.891 Personal history of nicotine dependence
CPT/HCPCS: 71045; 71046; 80048; 80069; 81001; 82550; 82948; 83735; 84443; 84484; 85025; 85379; 85610; 85730; 87086; 87804; 93005; 93306; 94640; 94664; 96374; J0696; J1815; J1940; J7030; J7644

== ENCOUNTER → 2018-02-28 | Outpatient (CLI) | payer MEDICARE, BC ==
[~2018-02-28] MED LIST changes: +APIX2.5T PO; +ATOR10TA15 PO; +CARD360C PO; +DULO1CAP3 PO; +ECASA81 PO; +FINA5TAB2 PO; +GLIM2TAB PO; -HYDR-2823 PO; -HYDR12.56 PO; +LORA0.5T PO; +LOSA25TA PO; +METO-309 PO; -NEUR600T PO; -SYMB6CAP PO; -TOPR25TA2 PO
[2018-02-28 13:58] LABS: HEMATOCRIT 41.6 % (39.0-51.0); HEMOGLOBIN 14.1 GM/DL (13.0-17.0); MEAN CELL VOLUME 91.8 FL (80.0-100.0); MEAN CORPUSCULAR HEMOGLOBIN 31.1 PG (27.0-34.0); MEAN CORPUSCULAR HGB CONC 33.9 % (32.0-36.0); MEAN PLATELET VOLUME 7.9 FL (7.0-11.0); PLATELET COUNT 268 TH/MM3 (150-450); RED BLOOD COUNT 4.54 MIL/MM3 (4.50-5.90); RED CELL DISTRIBUTION WIDTH 14.6 % (11.6-17.2); WHITE BLOOD COUNT 8.1 TH/MM3 (4.0-11.0)
[2018-02-28 14:10] LABS: ALBUMIN 3.4 GM/DL (3.4-5.0); AST (GOT) 17 U/L (15-37); BICARBONATE 26.7 MEQ/L (21.0-32.0); BLOOD UREA NITROGEN 15 MG/DL (7-18); CALCIUM 9.1 MG/DL (8.5-10.1); CHLORIDE 107 MEQ/L (98-107); CREATININE 1.13 MG/DL (0.60-1.30); GLOMERULAR FILTRATION RATE 62 ML/MIN (>89); GLUCOSE,FASTING 134 MG/DL (74-99); SODIUM (NA) 141 MEQ/L (136-145)
[2018-02-28 14:12] LABS: CHOLESTEROL 165 MG/DL (120-200)
[2018-02-28 14:16] LABS: ALKALINE PHOSPHATASE 109 U/L (45-117); ALT (GPT) 25 U/L (12-78); CHOLESTEROL/ HDL RATIO 3.68 RATIO; HDL CHOLESTEROL 44.8 MG/DL (40.0-60.0); LDL CHOLESTEROL 70 MG/DL (0-99); LDL CHOLESTEROL DIRECT 106 MG/DL (0-99); TOTAL BILIRUBIN ADULT 0.6 MG/DL (0.2-1.0); TOTAL PROTEIN 6.5 GM/DL (6.4-8.2); TRIGLYCERIDES 250 MG/DL (42-150)
[2018-02-28 14:50] LABS: HEMOGLOBIN A1C 8.1 % (4.3-6.0)
== END ==
LOC: PLAB 08:57
PROVIDERS: ATTEND Family Medicine
DX: I25.10 Atherosclerotic heart disease of native coronary artery without angina pectoris (principal); E11.9 Type 2 diabetes mellitus without complications; E78.5 Hyperlipidemia, unspecified; I10 Essential (primary) hypertension
CPT/HCPCS: 36415; 80053; 80061; 83036; 83721; 85027